=== PATIENT | female | born 1945 | race Caucasian/White ===

== ENCOUNTER → 2016-07-25 | Outpatient (CLI) | payer MEDICARE ==
[~2016-07-25] MED LIST: ASPI-611 PO; CA C1TAB81 PO; CALC-586 PO; FOLI-40 PO; GABA-185 PO; LEVO50TA69 PO; LISI10TA7 PO; METH2.5T33 PO; MORP60TA24 PO; MULT-806 PO; PANT40TA25 PO; POTA10TA92 PO; SENN1TAB5 PO; SERT-77 PO; TIOT18CA6 IH
== END ==
LOC: NWCC 10:45
PROVIDERS: ATTEND Internal Medicine
DX: L97.812 Non-pressure chronic ulcer of other part of right lower leg with fat layer exposed (principal); S81.851A Open bite, right lower leg, initial encounter; R60.0 Localized edema; I87.2 Venous insufficiency (chronic) (peripheral); Z86.14 Personal history of Methicillin resistant Staphylococcus aureus infection